=== PATIENT | female | born 1950 | race Caucasian/White ===

== ENCOUNTER 2017-04-06 08:08 | Emergency (ER) | payer MEDICARE ==
[2017-04-06 08:23] VITALS: BP 129/65; PULSE 89; RESP 16; TEMP 97.5
[2017-04-06] MEDS ORDERED: KETOROLAC 60 MG/2 ML VIAL IM STA (08:32)
--- NOTE | 2017-04-06 08:36 | ED ---
General Adult HPI - General Source: patient, RN notes reviewed Mode of arrival: wheelchair Limitations: physical limitation <Kimi Nichole - Last Filed: 04/06/17 09:28> <Aiden Magallon - Last Filed: 04/06/17 09:43> - General Chief complaint: Extremity Injury, Lower Stated complaint: Foot pain Time Seen by Provider: 04/06/17 08:24 - History of Present Illness Initial comments: [id number] female presents to the emergency department with a chief complaint of right foot pain. Patient states this started about on Friday. Patient states progressively wrapped around her foot now her most pain is at the base of the right toe. She states that she has pain with walking. She states that she has noticed some swelling to the right foot as well. She does admit to some calf pain as well. She denies any falls traumas or injuries to the foot. She denies any history of this in the past. She was concerned due to the continued pain so she thought that she should be. Patient denies any recent fever, chills, shortness of breath, chest pain, back pain, abdominal pain, nausea vomiting, numbness or tingling, dysuria or hematuria, constipation or diarrhea, headaches or visual changes, or any other current symptoms. (Kimi Nichole) - Related Data Home Medications Medication Instructions Recorded Confirmed Lisinopril-Hctz 20-25 mg 1 tab PO DAILY@1800 07/31/15 04/06/17 [Zestoretic 20-25] metFORMIN HCL [Glucophage] 500 mg PO BID 07/31/15 04/06/17 Acetaminophen [Tylenol Arthritis] 650 - 1,300 mg PO Q12H PRN 04/06/17 04/06/17 Ibuprofen [Motrin] 800 mg PO Q6H PRN 04/06/17 04/06/17 Previous Rx's Medication Instructions Recorded Naproxen [Naprosyn] 500 mg PO Q12HR #20 tab 04/06/17 Allergies Allergy/AdvReac Type Severity Reaction Status Date / Time sugar substitutes Allergy throat and Uncoded 04/06/17 08:23 tongue swelling Review of Systems ROS Other: All systems not noted in ROS Statement are negative. <Kimi Nichole - Last Filed: 04/06/17 09:28> ROS Other: All systems not noted in ROS Statement are negative. <Aiden Magallon - Last Filed: 04/06/17 09:43> ROS Statement: Those systems with pertinent positive or pertinent negative responses have been documented in the HPI. Past Medical History Past Medical History: Cancer, Diabetes Mellitus, GERD/Reflux, Hypertension, Osteoarthritis (OA) Additional Past Medical History / Comment(s): hx melanoma History of Any Multi-Drug Resistant Organisms: None Reported Past Surgical History: Tubal Ligation Additional Past Surgical History / Comment(s): growth removed from upper left leg Past Anesthesia/Blood Transfusion Reactions: No Reported Reaction Past Psychological History: No Psychological Hx Reported Smoking Status: Former smoker Past Alcohol Use History: None Reported Past Drug Use History: None Reported - Past Family History Mother Family Medical History: No Reported History <Kimi Nichole - Last Filed: 04/06/17 09:28> General Exam Limitations: physical limitation <Kimi Nichole - Last Filed: 04/06/17 09:28> <Aiden Magallon - Last Filed: 04/06/17 09:43> - General Exam Comments Initial Comments: General: The patient is awake and alert, in no distress, and does not appear acutely ill. Neck: The neck is supple, there is no tenderness. Cardiovascular: There is a regular rate and rhythm. No murmur, rub or gallop is appreciated. Respiratory: Lungs are clear to auscultation, respirations are non-labored, breath sounds are equal. No wheezes, stridor, rales, or rhonchi. Musculoskeletal: Sensation intact with 2+ pulses throughout the right lower extremity. Full range of motion of the right knee and ankle and foot. Tenderness at the base of the first digit. No redness minimal swelling. Tenderness to the top of the foot as well. Some calf tenderness noted. No erythema. Neurological: CN II-XII intact, There are no obvious motor or sensory deficits. Coordination appears grossly intact. Speech is normal. Skin: Skin is warm and dry and no rashes or lesions are noted. Psychiatric: Normal mood and affect. (Kimi Nichole) Course <Kimi Nichole - Last Filed: 04/06/17 09:28> <Aiden Magallon - Last Filed: 04/06/17 09:43> Vital Signs 04/06/17 08:18 Temperature 97.5 F L Pulse Rate 89 Respiratory 16 Rate Blood Pressure 129/65 O2 Sat by Pulse 97 Oximetry - Reevaluation(s) Reevaluation #1: 04/06/17 09:42 PA supervision I did personally do a [id number] evaluation the patient did discuss the findings with her and her . X-rays are negative as is the ultrasound. Patient does complain of pain to the first metatarsal phalangeal joint on the right foot. There is no localized increased temperature there is some mild tenderness palpation the presentation is consistent with an arthropathy. Patient has no low back or gluteal tenderness to palpation. There is no functional deficits. No vascular deficits. She will follow-up with Dr. Chaidez. (Aiden Magallon) Medical Decision Making - Radiology Data Radiology results: report reviewed, image reviewed <Kimi Nichole - Last Filed: 04/06/17 09:28> <Aiden Magallon - Last Filed: 04/06/17 09:43> - Medical Decision Making 66-year-old female presents for right foot pain. At this time patient's imaging and ultrasound has been reviewed and negative. This time we discussed most likely consistent with gout. We discussed that at this time we will start her on naproxen for home. We discussed care. We discussed return parameters and follow-up and all questions. Patient family stated they understood and management this plan. All questions have been answered. They will be discharged. (Kimi Nichole) Disposition Time of Disposition: 09:29 <Kimi Nichole - Last Filed: 04/06/17 09:28> <Aiden Magallon - Last Filed: 04/06/17 09:43> Clinical Impression: Gout of right foot Disposition: HOME SELF-CARE Condition: Stable Instructions: Gout (ED) Additional Instructions: Please use medication as discussed. Please follow up with family doctor if symptoms have not improved over the next two days. Please return to the emergency room if your symptoms increase or worsen or for any other concerns. Prescriptions: Naproxen [Naprosyn] 500 mg PO Q12HR #20 tab Referrals: Sanya Chaidez DO [Primary Care Provider] - 1-2 days
--- NOTE | 2017-04-06 09:09 | XR ---
EXAMINATION TYPE: XR foot complete RT , 3 VIEWS DATE OF EXAM ORDERED: 04/06/2017 HISTORY: Pain. COMPARISON: None. FINDINGS: There are mild degenerative changes in the right first MTP joint. No fracture or dislocati on is seen. No erosive changes noted. There are mild hammertoe deformities of the second through fift h digits. There are both plantar and Achilles calcaneal spurs. IMPRESSION: 1. NO ACUTE OSSEOUS LESION. 2. DEGENERATIVE CHANGE. 3. CALCANEAL SPURS.
--- NOTE | 2017-04-06 09:21 | US ---
EXAMINATION TYPE: US venous doppler duplex LE RT DATE OF EXAM: 04/06/2017 8:33 AM COMPARISON: NONE CLINICAL HISTORY: Pain. Foot pain, redness and swelling for a few days, no h/o dvt SIDE PERFORMED: Right TECHNIQUE: The lower extremity deep venous system is examined utilizing real time linear array sonog sarah with graded compression, doppler sonography and color-flow sonography. VESSELS IMAGED: External Iliac Vein (EIV) Common Femoral Vein Deep Femoral Vein Greater Saphenous Vein * Femoral Vein Popliteal Vein Small Saphenous Vein * Proximal Calf Veins (* superficial vessels) Right Leg: Appears negative for DVT No popliteal fossa lesion is seen. IMPRESSION: THIS EXAMINATION IS NEGATIVE FOR DVT WITHIN THE RIGHT LEG.
== END 2017-04-06 09:45 | disposition home or self-care (01) ==
LOC: EDSEX → EC 08:08
DX: M10.9 Gout, unspecified (principal); E11.9 Type 2 diabetes mellitus without complications; I10 Essential (primary) hypertension; Z85.820 Personal history of malignant melanoma of skin; Z87.891 Personal history of nicotine dependence; Z91.018 Allergy to other foods; Z79.84 Long term (current) use of oral hypoglycemic drugs; Z79.899 Other long term (current) drug therapy
CPT/HCPCS: 73630; 93971; 99284; 96372; J1885

== ENCOUNTER 2022-07-10 06:24 | Day surgery (SDC) | payer MEDICARE ==
[~2022-07-10 06:24] MED LIST: ALPRAZolam 0.25 MG TAB PO PRN; ALPRAZolam 0.5 MG TAB PO PRN; ASPIRIN 325 MG TAB PO STA; ATORVASTATIN 80 MG TAB PO STA; HEPARIN SODIUM,PORCINE 10,000 UNIT in SODIUM CHLORIDE 0.9% 1,000 ML IRRIGATION PRN; HEPARIN SODIUM,PORCINE 2,500 UNIT in SODIUM CHLORIDE 0.9% 250 ML IRRIGATION PRN; NITROGLYCERIN SL TABS 0.4 MG TAB SUBLINGUAL PRN; SODIUM CHLORIDE 0.9% 1,000 ML in EMPTY BAG 1 BAG IV SCH
[2022-07-10 07:04] VITALS: TEMP 97.3
[2022-07-10 07:04] LABS: Glucose,Whole Blood 135 mg/dL (70-110)
[2022-07-10 07:17] LABS: Basophils # (A) 0.1 k/uL (0-0.2); Basophils % (A) 0 %; Eosinophils # (A) 0.3 k/uL (0-0.7); Eosinophils % (A) 3 %; HCT 34.8 % (34.0-46.0); HGB 11.7 gm/dL (11.4-16.0); Lymphocytes # (A) 3.8 k/uL (1.0-4.8); Lymphocytes % (A) 29 %; MCH 30.1 pg (25.0-35.0); MCHC 33.6 g/dL (31.0-37.0); MCV 89.5 fL (80.0-100.0); Mean Platelet Volume 7.8; Monocytes # (A) 0.8 k/uL (0-1.0); Monocytes % (A) 6 %; Neutrophils # (A) 7.7 k/uL (1.3-7.7); Neutrophils % (A) 60 %; Platelet Count 415 k/uL (150-450); RBC 3.89 m/uL (3.80-5.40); RDW 12.1 % (11.5-15.5)
[2022-07-10 07:27] LABS: Calcium 9.8 mg/dL (8.4-10.2); Potassium 3.3 mmol/L (3.5-5.1)
[2022-07-10] MEDS ORDERED: POTASSIUM CHLORIDE ER 20 MEQ TAB.ER PO STA (07:56)
[2022-07-10] MEDS ORDERED: fentaNYL (PF) 50 MCG/ML 2 ML AMP IV ONE (09:23)
[2022-07-10] MEDS ORDERED: LIDOCAINE 1% INJ 10MG/ML (5 ML VIAL-PF) SQ ONE (09:26)
[2022-07-10] MEDS ORDERED: VERAPAMIL SYRINGE (5 MG/10 ML) INTRAARTER ONE (09:28)
[2022-07-10] MEDS ORDERED: MIDAZOLAM 2 MG/2 ML VIAL IV ONE (09:32)
[2022-07-10] MEDS ORDERED: HEPARIN SODIUM 1,000 UN/ML (10ML VL) IV ONE (09:35)
[2022-07-10] MEDS ORDERED: IOPAMIDOL-370 100ML BTL INJ ONE (09:47)
[2022-07-10] MEDS ORDERED: RX INFO: IV CONTRAST WAS GIVEN 1 EACH MISC MISCELLANE PRN (09:47)
--- NOTE | 2022-07-10 09:55 | P.CARDCATH ---
Date of Procedure: 07/10/22 Description of Procedure: Cardiac Catheterization: the patient is a 71-year-old female with a history of hypertension, hyperlipidemia and diabetes who has been complaining of progressive dyspnea on exertion. Her noninvasive workup was unremarkable but she has worsening of her symptoms. Recommendations were made regarding cardiac catheterization, the risks and the complications were discussed with the patient who is in full understanding and agreement. Procedure Description: Patient was brought to labor relations worker in fasting semi-sedated state after receiving Fentanyl and Benadryl achieiving moderate conscious sedated state. Using Xylocaine Anesthesia and Seldinger technique, a 6-Welsh sheath was introduced in the right radial artery . Subsequently, selective coronary angiography was performed using a 5-Welsh 3.5 bend Josselin catheter. Multiple views of the coronary artery including hemiaxial views were obtained. The right Josselin catheter was used to cross the aortic valve and LVEDP was calculated. Following that, catheter and sheath were removed. Hemostasis was obtained with deployment of TR band . There was no immediate complication. Patient was returned to room in stable condition. Of note, the patient received a total of 4000 units of intravenous heparin as well as intra-arterial verapamil. Findings: Left main: this is a large size vessel, bifurcating into LAD and left circumflex, left main has no obstructive disease LAD: this is a large size vessel, reaching to the apex, giving rise to a large diagonal branch. The mid LAD has a 20% plaque, the rest of the vessel has no high-grade stenosis Left circumflex: this is a nondominant vessel giving rise to 2 obtuse marginal branch that no high-grade stenosis RCA: this is a dominant vessel, large in caliber, bifurcating into PDA and PLV. The mid RCA has stent 20% plaque Left Ventriculogram: not performed Hemodynamics: there was no gradient across the aortic valve , LVEDP was 14-16 mmHg Conclusion: 1. mild disease in the LAD and RCA 2. normal LVEDP 3. right dominance Recommendations: I have recommended to continue present therapy, I see no evidence of significant obstructive disease in her filling pressure are normal. The findings and the recommendations were discussed with the patient and the family and they were in full understanding and agreement. Duration of sedation is 14 minutes.
[2022-07-10] MEDS ORDERED: SODIUM CHLORIDE 0.9% 1,000 ML IV SCH (10:00)
[2022-07-10] MEDS ORDERED: LISINOPRIL-HCTZ 20-25 MG 1 EACH TAB PO SCH (10:30)
[2022-07-10 10:38] VITALS: RESP 16
[2022-07-10 13:33] VITALS: BP 129/63; PULSE 76
[2022-07-10] MEDS ORDERED: METOPROLOL TARTRATE 25 MG TAB PO SCH (21:00)
[2022-07-11] MEDS ORDERED: ATORVASTATIN 10 MG TAB PO SCH (09:00)
[2022-07-11] MEDS ORDERED: ASPIRIN 81 MG PO SCH (09:00)
== END 2022-07-10 13:20 | disposition home or self-care (01) ==
LOC: CATHCVL 06:24
PROVIDERS: ATTEND Internal Medicine Interventional Cardiology
DX: I25.10 Atherosclerotic heart disease of native coronary artery without angina pectoris (principal); I10 Essential (primary) hypertension; E78.5 Hyperlipidemia, unspecified; E11.9 Type 2 diabetes mellitus without complications; F17.210 Nicotine dependence, cigarettes, uncomplicated; Z79.84 Long term (current) use of oral hypoglycemic drugs; Z79.82 Long term (current) use of aspirin; Z79.899 Other long term (current) drug therapy
CPT/HCPCS: 93458; 80048; 85025; C1769 ×2; C1894; J2250; J2001; J3010; J1644; Q9967

== ENCOUNTER → 2023-09-26 | Outpatient (CLI) | payer MEDICARE | END | disposition home or self-care (01) | LOC: LABPRL 14:20 | PROVIDERS: ATTEND Family Medicine | DX: I10 Essential (primary) hypertension (principal); E11.9 Type 2 diabetes mellitus without complications; E78.5 Hyperlipidemia, unspecified | CPT/HCPCS: 80053; 80061; 83036 ==